=== PATIENT | female | born 1975 | race Caucasian/White ===

== ENCOUNTER 2016-12-06 14:06 | Emergency (ER) | payer BC, OTHER ==
[2016-12-06 16:27] LABS: ABSOLUTE NEUTROPHIL COUNT 5.3 K/mm3 (1.8-7.7); BASO # 0.1 K/mm3 (0.0-0.2); BASO % 0.7 % (0.2-1.0); EOS # 0.1 (0.0-0.5); HEMATOCRIT 47.1 % (37.0-47.0); HEMOGLOBIN 15.8 gm/l (12.0-16.0); IMM NEUT% 0.3 % (0-1); LYMPH # 1.1 (1.0-4.8); MEAN CELL VOLUME 88.2 fl (81.0-99.0); MEAN CORPUSCULAR HEMOGLOBIN 29.6 pg (27.0-31.0); MEAN CORPUSCULAR HGB CONC 33.5 g/dl (33.0-37.0); MEAN PLATELET VOLUME 10.1 fl (7.4-10.4); MONO # 0.6 (0.0-0.8); MONO % 7.8 % (4-12); NEUT % 74.2 % (43-75); PLATELET COUNT 279 K/mm3 (130-400); RED CELL DISTRIBUTION WIDTH 12.5 % (11.5-14.5)
[2016-12-06 16:41] LABS: ALB/GLOB RATIO 1.2 (>1.0); ALBUMIN 4.1 gm/dL (3.5-5.7); CALCIUM 9.2 mg/dL (8.6-10.3)
[2016-12-06] MEDS ORDERED: SODIUM CHLORIDE 0.9% 1,000 ML ONE (16:45)
[2016-12-06] MEDS ORDERED: KETOROLAC TROMETHAMINE 30 MG/ML 1 ML VIAL ONE (16:45)
[2016-12-06 17:11] LABS: URINE BILIRUBIN NEGATIVE (NEGATIVE); URINE BLOOD 2+ (NEGATIVE); URINE GLUCOSE (UA) NEGATIVE (NEGATIVE); URINE LEUKOCYTE ESTERASE NEGATIVE (NEGATIVE); URINE NITRITE NEGATIVE (NEGATIVE); URINE PROTEIN NEGATIVE (NEGATIVE); URINE UROBILINOGEN NORMAL (0-1 mg/dl)
[2016-12-06 17:13] LABS: URINE APPEARANCE CLEAR; URINE COLOR YELLOW
[2016-12-06 17:16] LABS: URINE BACTERIA RARE; URINE EPITHELIAL CELLS 0 /hpf; URINE WBC NEG /hpf
== END 2016-12-06 14:11 | disposition home or self-care (01) ==
LOC: ED 14:06
DX: M54.5 Low back pain (principal)
CPT/HCPCS: 85025; 80053; 81001; 99283 ×2; 96374; J1885; J7030